=== PATIENT | female | born 1945 | race Caucasian/White ===

== ENCOUNTER → 2024-09-26 | Outpatient (CLI) | payer MEDICARE, OTHER ==
[~2024-09-26] MED LIST: CLIMARA1 EACH TOP; CODGUAEL PO; Prednisone20 MG PO
== END | disposition home or self-care (01) ==
LOC: LAB 18:26 → LAB SHORT 18:26
DX: N39.0 Urinary tract infection, site not specified (principal)
CPT/HCPCS: 87077; 87086; 87186